=== PATIENT | male | born 1965 | race Caucasian/White ===

== ENCOUNTER 2017-11-30 07:19 | Emergency (ER) | payer SELFPAY ==
[2017-11-30] MEDS ORDERED: NS(*) 0.9% 1000 ML BAG 1,000 ML IV ONE ×2 (07:39)
[2017-11-30] MEDS ORDERED: ONDANSETRON 4 MG/2 ML VIAL IVP ONE ×2 (07:40→13:00)
--- NOTE | 2017-11-30 07:42 | ER Report ---
History and Physical Time Seen By MD: 07:30 Hx. of Stated Complaint: pt presents weak from not eating due to n/v/d HPI/ROS CHIEF COMPLAINT: Persistent vomiting diarrhea HISTORY OF PRESENT ILLNESS: Patient is a 52-year-old male comes emergency Department reportedly 7 days of persistent vomiting and diarrhea inability to tolerate by mouth progressive weakness patient states that he is has nothing left in him to come out and that he has been vomiting persistently nonbloody nonbilious emesis and has had persistent diarrhea that he describes as simply loose watery stool however is a unable to tolerate by mouth he denies abdominal pain denies chest pains he's had some sinus congestion the last couple days as well patient thinks he may have had a flu is not sure patient has no additional complaints REVIEW OF SYSTEMS: Respiratory: No cough, no dyspnea. Cardiovascular: No chest pain, no palpitations. Gastrointestinal: No abdominal pain vomiting and diarrhea Musculoskeletal: No back pain. Remainder of the 14 system rev: Yes Allergies: Coded Allergies: No Known Drug Allergies (Unverified , 11/30/17) Home Meds No Active Prescriptions or Reported Meds Reviewed Nurses Notes: Yes Old Medical Records Reviewed: Yes Constitutional Vital Sign - Last 24 Hours 11/30/17 11/30/17 11/30/17 11/30/17 07:22 07:27 07:30 07:49 Temp 98.9 Pulse 94 89 Resp 20 B/P (MAP) 173/112 201/118 (145) 173/112 (132) Pulse Ox 96 95 O2 Delivery Room Air 11/30/17 11/30/17 11/30/17 11/30/17 07:50 07:51 07:53 07:54 Pulse 86 B/P (MAP) 169/112 (131) 169/112 (131) 188/124 (145) Pulse Ox 96 O2 Delivery Room Air 11/30/17 11/30/17 11/30/17 11/30/17 07:56 07:57 08:00 08:30 Pulse 95 B/P (MAP) 181/124 (143) 184/124 (144) 181/118 (139) 168/109 (128) 11/30/17 11/30/17 11/30/17 11/30/17 09:00 09:05 09:30 09:35 Pulse 64 79 B/P (MAP) 168/104 (125) 178/132 (147) Pulse Ox 93 95 11/30/17 11/30/17 11/30/17 11/30/17 10:00 10:05 10:11 10:16 Pulse 80 92 B/P (MAP) 163/110 (127) 155/103 (120) Pulse Ox 93 93 11/30/17 11/30/17 11/30/17 11/30/17 10:22 10:27 10:29 10:55 Pulse 90 B/P (MAP) 150/101 (117) 146/91 (109) 148/100 (116) Pulse Ox 93 11/30/17 11/30/17 11/30/17 11/30/17 10:57 11:00 11:02 11:07 Pulse 79 78 88 B/P (MAP) 151/111 (124) Pulse Ox 90 96 97 11/30/17 11/30/17 11/30/17 11/30/17 11:10 11:17 11:20 11:27 Pulse 88 ??? B/P (MAP) 148/98 (115) 146/48 (80) Pulse Ox 93 11/30/17 11/30/17 11/30/17 11/30/17 11:30 11:37 11:40 11:47 Pulse ??? 96 B/P (MAP) ???/??? (1665) 174/105 (128) Pulse Ox 95 11/30/17 11/30/17 11/30/17 11/30/17 11:50 11:57 12:00 12:07 Pulse 94 95 B/P (MAP) 162/108 (126) 124/102 (109) Pulse Ox 93 95 11/30/17 12:10 B/P (MAP) 166/97 (120) Intake and Output 11/30/17 11/30/17 12/01/17 15:00 23:00 07:00 Intake Total 1000 ml Balance 1000 ml Physical Exam General Appearance: The patient is alert, has no immediate need for airway protection and no current signs of toxicity. [ ] Eyes: Pupils equal and round no injection. Respiratory: Chest is non tender, lungs are clear to auscultation. Cardiac: regular rate and rhythm [ ] Gastrointestinal: Abdomen is soft and non tender, no masses, bowel sounds normal. Musculoskeletal: Neck: Neck is supple and non tender. Extremities have full range of motion and are non tender. Skin: No rashes or lesions. Mucous membranes dry DIFFERENTIAL DIAGNOSIS: After history and physical exam differential diagnosis was considered for dehydration and enteritis gastritis colitis persistent vomiting Medical Decision Making Data Points Result Diagram: 11/30/17 0809 11/30/17 0809 Laboratory Hematology Test 11/30/17 08:01 11/30/17 08:09 11/30/17 11:41 Influenza Virus Type A (PCR) Negative (NEGATIVE) Influenza Virus Type B (PCR) Negative (NEGATIVE) Red Blood Count 4.95 M/uL (4.00-5.60) Mean Corpuscular Volume 95.1 fL (80.0-96.0) Mean Corpuscular Hemoglobin 34.5 pg (26.0-33.0) Mean Corpuscular Hemoglobin Concent 36.3 g/dL (32.0-36.0) Red Cell Distribution Width 15.3 % (11.5-14.5) Mean Platelet Volume 7.5 fL (7.2-11.1) Neutrophils (%) (Auto) 83.3 % (39.4-72.5) Lymphocytes (%) (Auto) 4.7 % (17.6-49.6) Monocytes (%) (Auto) 11.6 % (4.1-12.4) Eosinophils (%) (Auto) 0.0 % (0.4-6.7) Basophils (%) (Auto) 0.4 % (0.3-1.4) Nucleated RBC Relative Count (auto) 0.0 /100WBC Neutrophils # (Auto) 5.2 K/uL (2.0-7.4) Lymphocytes # (Auto) 0.3 K/uL (1.3-3.6) Monocytes # (Auto) 0.7 K/uL (0.3-1.0) Eosinophils # (Auto) 0.0 K/uL (0.0-0.5) Basophils # (Auto) 0.0 K/uL (0.0-0.1) Nucleated RBC Absolute Count (auto) 0.00 K/uL Peripheral Blood Smear Yes Y/N Prothrombin Time 14.0 seconds (12.0-14.4) Prothromb Time International Ratio 1.08 Activated Partial Thromboplast Time 53 seconds (23-35) Sodium Level 134 mmol/L (137-145) Potassium Level 3.1 mmol/L (3.5-5.0) Chloride Level 91 mmol/L (98-107) Carbon Dioxide Level 22 mmol/L (22-30) Blood Urea Nitrogen 9 mg/dl (9-21) Creatinine 0.60 mg/dl (0.66-1.25) Glomerular Filtration Rate Calc > 60.0 Random Glucose 197 mg/dl (75-110) Calcium Level 9.9 mg/dl (8.4-10.2) Total Bilirubin 1.6 mg/dl (0.2-1.3) Aspartate Amino Transf (AST/SGOT) 201 U/L (0-35) Alanine Aminotransferase (ALT/SGPT) 157 U/L (0-56) Alkaline Phosphatase 97 U/L (0-126) Troponin I < 0.012 ng/ml Total Protein 8.5 gm/dl (6.3-8.2) Albumin 4.4 g/dl (3.5-5.0) Lipase 51 U/L (23-300) Urine Color Yellow Urine Clarity Clear Urine pH 7.0 pH (4.8-9.5) Urine Specific [place] 1.023 Urine Protein 100 mg/dL (NEGATIVE) Urine Glucose (UA) Negative mg/dL (NEGATIVE) Urine Ketones 20 mg/dL (NEGATIVE) Urine Blood Negative (NEGATIVE) Urine Nitrite Negative (NEGATIVE) Urine Bilirubin Negative (NEGATIVE) Urine Urobilinogen 2.0 mg/dL (0.2-1.9) Urine Leukocyte Esterase Negative (NEGATIVE) Urine RBC None /HPF (0-2/HPF) Urine WBC 2 /HPF (0-5/HPF) Urine Squamous Epithelial Cells None /LPF (</=FEW) Urine Bacteria Negative /HPF (NONE-FEW) Urine Mucus Few /HPF (NONE-FEW) Chemistry Test 11/30/17 08:01 11/30/17 08:09 11/30/17 11:41 Influenza Virus Type A (PCR) Negative (NEGATIVE) Influenza Virus Type B (PCR) Negative (NEGATIVE) White Blood Count 6.2 k/uL (4.5-11.0) Red Blood Count 4.95 M/uL (4.00-5.60) Hemoglobin 17.1 g/dL (14.0-18.0) Hematocrit 47.1 % (42.0-52.0) Mean Corpuscular Volume 95.1 fL (80.0-96.0) Mean Corpuscular Hemoglobin 34.5 pg (26.0-33.0) Mean Corpuscular Hemoglobin Concent 36.3 g/dL (32.0-36.0) Red Cell Distribution Width 15.3 % (11.5-14.5) Platelet Count 176 K/uL (150-450) Mean Platelet Volume 7.5 fL (7.2-11.1) Neutrophils (%) (Auto) 83.3 % (39.4-72.5) Lymphocytes (%) (Auto) 4.7 % (17.6-49.6) Monocytes (%) (Auto) 11.6 % (4.1-12.4) Eosinophils (%) (Auto) 0.0 % (0.4-6.7) Basophils (%) (Auto) 0.4 % (0.3-1.4) Nucleated RBC Relative Count (auto) 0.0 /100WBC Neutrophils # (Auto) 5.2 K/uL (2.0-7.4) Lymphocytes # (Auto) 0.3 K/uL (1.3-3.6) Monocytes # (Auto) 0.7 K/uL (0.3-1.0) Eosinophils # (Auto) 0.0 K/uL (0.0-0.5) Basophils # (Auto) 0.0 K/uL (0.0-0.1) Nucleated RBC Absolute Count (auto) 0.00 K/uL Peripheral Blood Smear Yes Y/N Prothrombin Time 14.0 seconds (12.0-14.4) Prothromb Time International Ratio 1.08 Activated Partial Thromboplast Time 53 seconds (23-35) Glomerular Filtration Rate Calc > 60.0 Calcium Level 9.9 mg/dl (8.4-10.2) Total Bilirubin 1.6 mg/dl (0.2-1.3) Aspartate Amino Transf (AST/SGOT) 201 U/L (0-35) Alanine Aminotransferase (ALT/SGPT) 157 U/L (0-56) Alkaline Phosphatase 97 U/L (0-126) Troponin I < 0.012 ng/ml Total Protein 8.5 gm/dl (6.3-8.2) Albumin 4.4 g/dl (3.5-5.0) Lipase 51 U/L (23-300) Urine Color Yellow Urine Clarity Clear Urine pH 7.0 pH (4.8-9.5) Urine Specific [place] 1.023 Urine Protein 100 mg/dL (NEGATIVE) Urine Glucose (UA) Negative mg/dL (NEGATIVE) Urine Ketones 20 mg/dL (NEGATIVE) Urine Blood Negative (NEGATIVE) Urine Nitrite Negative (NEGATIVE) Urine Bilirubin Negative (NEGATIVE) Urine Urobilinogen 2.0 mg/dL (0.2-1.9) Urine Leukocyte Esterase Negative (NEGATIVE) Urine RBC None /HPF (0-2/HPF) Urine WBC 2 /HPF (0-5/HPF) Urine Squamous Epithelial Cells None /LPF (</=FEW) Urine Bacteria Negative /HPF (NONE-FEW) Urine Mucus Few /HPF (NONE-FEW) Coagulation Test 11/30/17 08:09 Prothrombin Time 14.0 seconds Prothromb Time International Ratio 1.08 Activated Partial Thromboplast Time 53 seconds Urinalysis Test 11/30/17 11:41 Urine Color Yellow Urine Clarity Clear Urine pH 7.0 pH (4.8-9.5) Urine Specific [place] 1.023 Urine Protein 100 mg/dL (NEGATIVE) Urine Glucose (UA) Negative mg/dL (NEGATIVE) Urine Ketones 20 mg/dL (NEGATIVE) Urine Blood Negative (NEGATIVE) Urine Nitrite Negative (NEGATIVE) Urine Bilirubin Negative (NEGATIVE) Urine Urobilinogen 2.0 mg/dL (0.2-1.9) Urine Leukocyte Esterase Negative (NEGATIVE) Urine RBC None /HPF (0-2/HPF) Urine WBC 2 /HPF (0-5/HPF) Urine Squamous Epithelial Cells None /LPF (</=FEW) Urine Bacteria Negative /HPF (NONE-FEW) Urine Mucus Few /HPF (NONE-FEW) ED Course/Re-evaluation ED Course ED clinical course medical decision making a 52-year-old male came in here with abdominal nausea vomiting persistent he also described a subtle headache has been intermittent but yet somewhat persistent for the last couple of days secondary to that I get a head CT which came back markedly abnormal with an intracranial abnormality including bleeding potentially mass related or aneurysmal further following up CTA has been ordered and performed and consult with Dr. Saleem our radiologists consulting with neuroradiology patient's blood pressure was markedly elevated this was treated with IV Cardene. 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 patient will be airlifted to [facility] I spoke with interventional radiology for definitive care and management to the ICU will continue Cardene drip she medically stable map trending down get the diastolic lowered in the systolic less than 140 per recommendation Decision to Disposition Date: November 30, 2017 Decision to Disposition Time: 12:21 Depart Departure Latest Vital Signs Vital Signs Date Time Temp Pulse Resp B/P (MAP) Pulse Ox O2 Delivery O2 Flow Rate FiO2 11/30/17 12:10 166/97 (120) 11/30/17 12:07 95 95 11/30/17 07:54 Room Air 11/30/17 07:22 98.9 20 Impression: Primary Impression: Ruptured aneurysm of artery Condition: Improved Disposition: XFER TO [facility] Referrals: ONEIDA MCCLELLAN MD (PCP) New Scripts No Active Prescriptions or Reported Meds KERON NASCIMENTO MD November 30, 2017 07:42
--- NOTE | 2017-11-30 07:52 | EKG ---
FACILITY: [facility] PATIENT NAME: KIANNA LEE : [id number] MR: [id number] V: [id number] EXAM DATE: ORDERING PHYSICIAN: KERON NASCIMENTO TECHNOLOGIST: ROMAINE Test Reason : NAUSEA Blood Pressure : / mmHG Vent. Rate : 090 BPM Atrial Rate : 090 BPM P-R Int : 162 ms QRS Dur : 096 ms QT Int : 386 ms P-R-T Axes : 041 -54 006 degrees QTc Int : 472 ms Normal sinus rhythm Left axis deviation Inferior infarct , age undetermined Abnormal ECG No previous ECGs available Confirmed by LEATHA SWEENEY ([id number]) on 11/30/2017 10:25:52 AM Referred By: PILY Confirmed By:LEATHA SWEENEY
[2017-11-30 09:12] LABS: PLATELET COUNT, AUTOMATED 176 K/uL (150-450)
[2017-11-30] MEDS ORDERED: KETOROLAC 30 MG/ML VIAL IVP ONE (09:20)
[2017-11-30] MEDS ORDERED: IOPAMIDOL 76% 75 ML INFUS BTL 75 ML ONE ×2 (09:41→10:50)
[2017-11-30] MEDS ORDERED: NICARDIPINE(*) 20MG/NS 200 ML 200 ML IV ONE ×2 (09:50→14:20)
[2017-11-30 10:11] LABS: INR 1.08
--- NOTE | 2017-11-30 10:47 | RADIOLOGY IMAGING REPORT ---
FACILITY: [facility] PATIENT NAME: Binu Tyler : 1965 MR: [id number] V: [id number] EXAM DATE: ORDERING PHYSICIAN: KERON NASCIMENTO TECHNOLOGIST: Location: [facility] [place] Patient: Binu Tyler : 1965 Visit/Account:[id number] Date of Sevice: 11/30/2017 EXAMINATION: Head CT without intravenous contrast HISTORY: Headache x1 week TECHNIQUE: Contiguous axial images were obtained from the skull base to the vertex without intraven ous contrast. Sagittal and coronal reformatted images are also submitted. Dose Lowering Technique One of the following dose optimization techniques was utilized in the performance of this exam: Autom ated exposure control; adjustment of the mA and/or kV according to the patient's size; or use of an i terative reconstruction technique. Specific details can be referenced in the facility's radiology C T exam operational policy. COMPARISON: None. FINDINGS: Brain volume: Normal. There is a 3 x 3 x 1.7 cm hemorrhage in the medial left parietal lobe which extends medially into the body of the corpus callosum. There is a small amount of hemorrhage breaking into the atria and temp oral horn of the left lateral ventricle. There is a small amount of surrounding edema.. There are b ilateral parafalcine subdural hematomas with both acute and chronic components. The maximum diameter of the parafalcine subdural is 4.5 mm. There are also small bilateral holohemispheric subdural ez muna with both acute and chronic components. The maximum diameter 6 mm. There is no significant mi dline shift or downward herniation. The subdural hematoma tracks along the tentorium bilaterally. Vessels: Negative. Extra-axial: As described above Calvarium / scalp: Negative. Skull base / visualized face: Negative. Visualized sinuses / orbits: Mild mucosal thickening in the maxillary sinuses IMPRESSION: There is a 3 x 3 x 1.7 cm hemorrhage in the medial left parietal lobe which extends medially into the body of the corpus callosum. There is a small amount of surrounding edema There is a small amount of hemorrhage breaking into the atria and temporal horn of the left lateral ventricle. There are bilateral parafalcine subdural hematomas with both acute and chronic components. The subdu ral hematoma tracks along the tentorium bilaterally. There are small bilateral holohemispheric subdural hematomas with both acute and chronic components. There is no significant midline shift or downward herniation. Given the midline location with hemorrhage extending into the corpus callosum. Most likely etiology would be an anterior cerebral artery aneurysm. Neoplastic process is less likely due to the small a mount of surrounding edema. CTA of the brain with contrast is recommended for further evaluation. Results were called to KERON NASCIMENTO at 11/30/2017 10:43 AM. Report Dictated By: Meghan Webber MD at 11/30/2017 10:12 AM Report E-Signed By: Meghan Webber MD at 11/30/2017 10:43 AM WSN:[id number]
[2017-11-30] MEDS ORDERED: NS 0.9% 150 ML BAG 150 ML ONE (10:50)
--- NOTE | 2017-11-30 11:39 | RADIOLOGY IMAGING REPORT ---
FAC[place] [facility] [place] PATIENT NAME: Binu Tyler : 1965 MR: [id number] V: [id number] EXAM DATE: ORDERING PHYSICIAN: KERON NASCIMENTO TECHNOLOGIST: Location: [facility] Patient: Binu Tyler : 1965 Visit/Account:[id number] Date of Sevice: 11/30/2017 CT ANGIOGRAM HEAD W/ CONTRAST EXAMINATION: CTA of the Brain with IV contrast Additional Pertinent history: Intracranial hemorrhage COMPARISON STUDIES: CT head obtained earlier same date. TECHNIQUE: Overlapping thin sections were obtained during a bolus of IV contrast from the upper nec k through the upper cerebrum. Reconstruction of the source data set includes mulitplanar 2D in the sa gittal and coronal planes, and 3D coronal thin slab MIP series. Oil Well Engineer images have been store d on PACS. One of the following dose optimization techniques was utilized in the performance of this exam: Automated exposure control; adjustment of the mA and/or kV according to the patient's size; or use of an iterative reconstruction technique. Specific details can be referenced in the facility's radiology CT exam operational policy. Stenosis calculations are performed using the NASCET criteria ( the diameter of the stenotic segment divided by the diameter of a normal distal segment of internal c arotid artery, where [place] are parallel, then subtracted from 1). Contrast: 75 mL of IV Isovue-370. FINDINGS: Angiographic findings: Internal carotids: Negative. Vertebro-basilar: Negative. [place]: Negative. ASIYA circulation: Focal 3 mm hyperdense area adjacent to the pericallosal hemorrhage compatible with an aneurysm.. MCA circulation: Negative. HOISTING MACHINE OPERATOR circulation: Negative. Additional non-angiographic findings: Intracranial hemorrhage appears stable. IMPRESSION: Findings compatible with a 3 mm ASIYA aneurysm adjacent to the pericallosal hematoma. Results were called to Dorota nurse practitioner caring for the patient at 1130 hours. Report Dictated By: Aleksandar Looney MD at 11/30/2017 11:23 AM Report E-Signed By: Aleksandar Looney MD at 11/30/2017 11:35 AM WSN:[id number]
[2017-11-30 14:20] VITALS: BP 147/89
== END 2017-11-30 14:59 | disposition short-term general hospital (02) ==
LOC: ER 07:26
DX: I77.2 Rupture of artery (principal); R94.31 Abnormal electrocardiogram [ECG] [EKG]
CPT/HCPCS: 70450; 70496; 81001; 83690; 84484; 85025; 85610; 85730; 87502; 93005; 96361; 96365; 96366; 96375; 96376; 99285; J1885; J2405; J7030; Q9967; 82040; 82247; 82310; 82374; 82435; 82565; 82947; 84075; 84132; 84155; 84295; 84450; 84460; 84520

== ENCOUNTER → 2017-11-30 | Outpatient (REF) | LOC: AMB 13:09 | PROVIDERS: ATTEND Nurse Practitioner | DX: Z02.9 Encounter for administrative examinations, unspecified (principal) ==

== ENCOUNTER 2018-03-01 11:15 | Outpatient (RCR) | payer OTHER ==
--- NOTE | 2018-02-08 15:48 | SLP EVALUATION SUMMARY REPORT ---
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 CT scan was taken on 11/30/17 after Mr. Tyler initially presented to the ED at [facility] on 11/30/17 with progressive weakness, persistent vomiting, and abdominal pain. Hemorrhage was noted in the medial left parietal lobe with medial extension into the body of the corpus callosum. CT scan was also remarkable for bilateral parafalcine subdural hematomas and bilateral holohemispheric subdural hematomas. Following results of his CT scan, Mr. Tyler was quickly airlifted to a hospital in [place]. Mr. Tyler demonstrated difficulty recalling course of hospitalization, and was unable to describe rehabilitative services received while hospitalized. Medical history appears otherwise unremarkable. COGNITION Assessment procedures included a patient interview, informal evaluation of expressive and receptive language, informal assessment of motor speech, and administration of the Peabody Cognitive Assessment (version 7.3). A brief screening tool was selected due to significant difficulties noted with sustained attention, self-report of cognitive fatigue, and disclosure of decreased motivation to participate in rehabilitative services. During the patient interview, Mr. Tyler reported concerns with short term memory, ability to sustain attention, expressive language, and speech output. He appeared highly frustrated by perceived deficits with significant decline in comparison to baseline cognitive linguistic status. 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 He enjoys hunting, riding motorcycles, and spending time with family. The Peabody Cognitive Assessment (MoCA) Version 7.3 was administered with the following results: -MoCA Total Score (TS): 19/30 (WFL = 27/30) mild neurocognitive impairment. Significant difficulties were noted during tasks requiring short term memory. Mild errors were also noted during executive function, expressive language, attention, and orientation activities. Mr. Tyler required extra time to process new information, but often self-corrected mistakes when provided with ample time for error awareness. He struggled to independently recall current date and location, but self-cued to look out the window to identify the town of [place] and to utilize cell phone for recall of current date. Mr. Tyler also exhibited darting eye movements with high levels of distractibility difficulty competing attention against external environmental stimuli. LANGUAGE Mr. Tyler demonstrated mild anomia throughout interview process, in addition to infrequent phonemic paraphasias, reduced semantic fluency, and circumlocutions. He was highly aware of expressive language pattern, and appeared discouraged by errors (I guess this is just how I talk now). Further assessment appears warranted. Receptive language appears relatively intact despite extra time required to process complex information. Mild social language (pragmatic) impairments also appeared present. Pragmatic deficits were characterized by decreased eye contact, flat prosody, difficulty interpreting/responding to humor, and shortened, abrupt responses to open-ended questions. However, Mr. Tyler stated that he is typically "a quiet silvano" at baseline. SPEECH Mr. Tyler demonstrated decreased speech initiation, and reported, Its almost like my tongue gets stuck in my mouth. Difficulty was observed during rapid, alternating diadokokinetic tasks with noted improvement when cued to observe PAINTER DRUM model. Mr. Tyler appears to present with mild apraxia of speech in conjunction with mild deficits in expressive aphasia. VOICE Within functional limits. Mr. Tyler demonstrated intermittent reduction in speaking volume which appeared secondary to initiation deficits associated with cerebral injury versus true impairment in voice generation. DYSPHAGIA Patient denies past s/s. No concerns noted in medical record. SUMMARY Mr. Tyler presents with mild to moderate cognitive- linguistic deficits that may reduce independence with completion of IADLs, return to vocational activities, and complex communication. He endorses a moderate, negative impact of cognitive-linguistic deficits on daily life and work-related tasks. The results of this evaluation demonstrate that functional cognitive-linguistic impairments are present, indicating skilled speech therapy services are medically necessary for this patient. PROGNOSIS: Very Good. Patient has good family support, exhibits strong insight , and demonstrates evidence of self-correction. RECOMMENDATIONS 1. Speech therapy 2x/wk for 7 weeks to address above described deficits PLAN OF CARE Short Term Goals 1. Pt will utilize trained energy conservation strategies during 90% of opportunities with min cues to improve sustained attention, decrease cognitive overload, and minimize frustration during participation in IADL activities. 2. Pt will perform short-term memory tasks using external and internal memory strategies with 90% accuracy and mod assist. 3. Pt will complete complex expressive language activities (i.e., complex conversation, description of medical needs, communication of vocational activities) with occ cues for use of word-finding strategies and self- correction of expressive language errors. Long-Term Goals Increase independence with IADLs and functional communication for safe and successful return to home, community, and vocational activities. Thank you for this referral. Please call [phone] to contact the [employer] Aida Valdez M.S., [facility]-PAINTER [employer]UM Physician Signature Date . [*] MTDD
--- NOTE | 2018-02-08 16:44 | PT INITIAL EVALUATION ---
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 Hemorrhage was noted in the medial left parietal lobe with medial extension into the body of the corpus callosum. CT scan was also remarkable for bilateral parafalcine subdural hematomas and bilateral holohemispheric subdural hematomas. Following results of his CT scan , he was quickly airlifted to a hospital in [place]. He demonstrated difficulty recalling course of hospitalization. He was able to recall that he did participant in physical therapy, occupational therapy, and speech therapy prior to returning to home but unable to recall the specifics. He reports that he returned home on Tuesday (02/06/18) and is not having difficulty with anything around his home. He states that stairs are going well. He denies any falls at home. He states that he feels like his coordination and balance continue to be off but strength and walking seem to be returning to his prior level of function. He also reports that he has the most difficulties with short term memory and talking. He denies any pain in his entire body with the exception of his R knee that he injured when he was 14 years old. He denies any B knee buckling or falls since being home. 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 L hip adduction, L knee extension and flexion, and L ankle DF and PF: 4+/5. R hip flexion, abduction, extension, R hip adduction, R knee extension and flexion, R ankle DF and PF: 4+ /5. He did not have any pain with MMT's in either extremity. Special Tests: 5 sit to/from standin seconds. Tinetti gait and balance: : continues to be high risk. 6 minute walk test: 770 feet with FWW. Mobility: Modified Independent Gait: He demonstrated increased base of support, decreased velocity, decreased B pelvic rotation, normal B feet clearance, normal B step length, increased double limb support, increased stance time, and required repeated cuing to stay close to the walker. Balance: Firm surface, eyes opened and eyes closed, normal base of support and decreased base of support: 60 seconds; however, he demonstrated increased sway with eyes closed. Compliant surface, eyes opened and eyes closed, normal base of support and decreased base of support: 60 seconds; however, he demonstrated increased sway with eyes closed. Compliant surface, tandem stance, eyes opened : able to complete 40 seconds with severe sway requiring stabilization to prevent fall ASSESSMENT: Gonzalo will benefit from skilled physical therapy addressing the listed impairments to improve function and return to prior level of function. Short Term Goals 8 weeks: Pt will be able to ambulate independently with a return to prior gait mechanics to improve function and QOL. 8 weeks: Pt will demonstrate 5/5 strength with B LE's to improve function and QOL. 8 weeks: Pt will demonstrate 60 seconds in all balance conditions and strategies to improve function and QOL (feet together, feet apart, eyes closed , eyes opened, firm surface, and compliant surface). Patient's Goals reduce clumsiness, get stronger, and walk without walker PLAN: Patient to be seen for Manual Therapy/STM/MET Strengthening/condition Range of Motion Spinal Stabilization Work Hardening/Cond Stretching Neuromuscular Re-ed Closed Chain Program Posture/Body mechanics Gait Trg/Balance Trg Home Exercise Program Therapeutic Activities 1-2x/week for 8 weeks If you have any questions, comments, or concerns about this report or plan, please contact me at . Thank you, Bari Cool, PT, DPT MTDD
--- NOTE | 2018-02-09 09:43 | OT ECF NOTE ---
SUBJECTIVE: Gonzalo presents to outpatient OT s/p L parietal CVA. [facility] and quickly flown to [place] for further intervention. Pt with flat affect and providing minimal responses to questions. Pt reports he is not sure when he returned home and what rehab (PT/OT/Speech) he received prior. Pt reports living with son and no difficulties with ADLs or IADLs within the home. Ambulates with RW. Pt reports no concerns with UE function, ADLs/IADLs and reports his primary goal is to "ride my motorcycle again" and he is primarily concerned about pain/weakness in R LE. 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 Pt is able to recognize hot/cold. No numbness/tingling reported. Special Test: 9 Hole Peg Test (dexterity)-V/c's for attention to task. Right= 27 seconds (Age/gender normative= 19.2sec.) Left=34 seconds (Age/gender normative= 20.7 sec.) ASSESSMENT Pt presents with generalized weakness in B UE and decreased fine motor strength/ dexterity compared to relative norms. Pt agreeable to skilled OT intervention to improve B UE strength and incorporation of HEP. Short Term Goals 1) Pt will improve blister packing machine tender strength by 10# in order to improve engagement in IADLs. 2) Pt will be independent with HEP for UE strengthening. PLAN: 1x/week x 2 weeks Thank you for this referral. If you have any questions, concerns, or comments about this report or plan, please contact me at [phone]. Mana Valdez MS, OTR/L Occupational Therapist DELMY
--- NOTE | 2018-02-20 14:59 | OT DISCHARGE SUMMARY ---
SUBJECTIVE: Gonzalo presented to outpatient OT s/p L parietal CVA. Pt reports no concerns with UE function, ADLs/IADLs and reports his primary concerns are balance and memory. 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 Pt is able to recognize hot/cold. No numbness/tingling reported. Special Test: Pt declining OT tx, amenable to discharge from OT as he is able to use B UE for all functional tasks. ASSESSMENT Pt declining OT tx this date, reports no concerns with UE strength/function. Reports he has not been completing HEP and declines to review them with OT at this time. Pt agreeable to discharge from skilled OT services. Plan to continue with speech and PT. Pt instructed for process to resume OT if desired. Plan to discharge skilled OT services at this time. Short Term Goals 1) Pt will improve client relations specialist strength by 10# in order to improve engagement in IADLs. Not tested. 2) Pt will be independent with HEP for UE strengthening. Pt reports he has not completed HEP. Has HEP available if he decides to utilize. PLAN: Discharge skilled OT services at this time. Thank you for this referral. If you have any questions, concerns, or comments about this report or plan, please contact me at [phone]. Mana Valdez MS, OTR/L Occupational Therapist DELMY
--- NOTE | 2018-03-01 18:25 | PT PLAN OF CARE ---
Physician: JAYASHREE Pak Patient is being seen: 2x/week Therapist: Bari Cool, PT, DPT Medical Diagnosis: Post CVA Treatment Diagnosis: same, altered gait, decreased strength, decreased balance and coordination Date of Onset: 11/30/17 Date of Initial Evaluation: 02/08/18 Date patient was last seen: 03/01/18 Number of treatments: 7 Number of cancellations/No shows: 0 INTERVENTIONS: Manual Therapy/STM/MET Strengthening/condition Range of Motion Spinal Stabilization Work Hardening/Cond Stretching Neuromuscular Re-ed Closed Chain Program Posture/Body mechanics Gait Trg/Balance Trg Home Exercise Program Therapeutic Activities GOALS: 8 weeks: Pt will be able to ambulate independently with a return to prior gait mechanics to improve function and QOL. MET 8 weeks: Pt will demonstrate 5/5 strength with B LE's to improve function and QOL. Progressed 8 weeks: Pt will demonstrate 60 seconds in all balance conditions and strategies to improve function and QOL (feet together, feet apart, eyes closed , eyes opened, firm surface, and compliant surface). MET PATIENT'S GOAL: reduce clumsiness, get stronger, and walk without walker Progressed Status of Patient's Goals: Progressed Patient Compliance: Good Prognosis: Excellent Reasons for continuing therapy: This is a discharge note for Binu Tyler. He reports that he feels like he is getting better as each day and each week passes. He reports that he feels like his memory and his balance are his two limiting factors and believes that those two factors will improve over time. He reports that today will be the last day of PT even though he knows that his balance has not returned to his prior level of function. Since the initial examination, he has made significant improvements with static balance in all conditions and has met that goal as he has return to prior level of function. However, with his dynamic balance, he continues to demonstrate reduced ankle and hip strategies in conditions with decreased base of support and in tandem stance. Furthermore, he demonstrates delayed motor planning with more than one step instructions. As a result, he refuses to continue with physical therapy even though he understands his dynamic balance and delayed motor planning. He even refused home exercise program as he feels that it will just get better overtime with his normal daily tasks that he typically performs. Lastly, he has demonstrated significant improvements with gait and endurance. As a result, of his own desire, he will be discharged from PT. Strength: L hip flexion, abduction, extension: 4+/5. L hip adduction, L knee extension and flexion, and L ankle DF and PF: 4+/5. R hip flexion, abduction, extension, R hip adduction, R knee extension and flexion, R ankle DF and PF: 4+ /5. He did not have any pain with MMT's in either extremity. Special Tests: 5 sit to/from standin seconds. Tinetti gait and balance: : continues to be high risk. 6 minute walk test: 770 feet independently. Mobility: Independent If you have any questions, please contact me at [phone]. Thank you, Bari Cool, PT, DPT MTDD
== END 2018-03-01 18:00 | disposition home or self-care (01) ==
LOC: PT 11:15
PROVIDERS: ATTEND Nurse Practitioner Psychiatric/Mental Health
DX: I69.318 Other symptoms and signs involving cognitive functions following cerebral infarction (principal); R26.89 Other abnormalities of gait and mobility; R53.1 Weakness
CPT/HCPCS: 92523; 97162; 97166

== ENCOUNTER 2018-11-22 14:30 | Outpatient (RCR) | payer OTHER ==
[2018-08-30 08:06] VITALS: BP 131/92
[2018-08-30 09:41] LABS: PLATELET COUNT, AUTOMATED 204 K/uL (150-450)
[2018-08-30 11:12] LABS: INR 1.02
--- NOTE | 2018-08-30 12:36 | ONCOLOGY HISTORY AND PHYSICAL ---
EVENT DATE: August 30, 2018 CHIEF COMPLAINT Short-term memory loss, frustration. HISTORY OF PRESENT ILLNESS Gonzalo is a very pleasant,53-year old gentleman with a history of hypertension and heavy alcohol use who also has a suspected diagnosis of von Willebrand disease and note of possible presence of lupus anticoagulant. The patient had presented to the [facility] November 2017, having been air-lifted from [place]. He was diagnosed at that time with intraparenchymal bleeding after giving a history of about two months of headaches, nausea and vomiting after falling and injuring his head and face. 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 He also has a known ophthalmic aneurysm. He did have a prolonged hospitalization and subsequent discharge to rehab. He had made a remarkable recovery and since that time he has been back in [place]. For the most part, things have gone okay on the surface but he remains frustrated with his short-term memory loss, cognitive issues and relative dependence on loved ones. From a hematologic perspective, he did undergo prior testing for von Willebrand's disease with labs consistent with moderate to severe type 1 von Willebrand's. There was some suspicion per hematology consultation at [facility] for falsely lowered values due to specimen handling. Subsequent testing showed much higher numbers, while acutely ill. Patient underwent additional studies to include factor V, factor VII and factor VIII levels. These were reportedly modestly low, suggesting the possibility of mild liver dysfunction, keeping into account his alcohol use. In any case, there was no other notable report to my knowledge of abnormal bleeding during his hospital stay and he has had none since. The patient does report that he had dealt with fairly frequent epistaxis but only a few times had it been moderate or severe. He did not have any bleeding with prior wisdom teeth extraction and no abnormal bleeding with any surgical procedures. To his knowledge, he has not required blood transfusion. He reports no recent issues with epistaxis and he has had no melena or hematochezia. He denies hematuria. Bruising has not been particularly remarkable. Gonzalo is here today to establish care with a train operator locally. He and his significant other have many questions. REVIEW OF SYSTEMS Otherwise negative and all systems are reviewed. PAST MEDICAL HISTORY 1. 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 2. History of alcohol abuse. 3. Hypertension. CURRENT MEDICATIONS None, per review with patient today. ALLERGIES No known drug allergies. SOCIAL HISTORY The patient does have a reported history of heavy alcohol use. There is no history of illicit drug use. FAMILY HISTORY There is a reported family history of von Willebrand disease in his children. PHYSICAL EXAMINATION VITAL SIGNS: Temperature 96.9, blood pressure 131/92, heart rate 81, respirations 16, oxygen saturation 94% on room air. Weight 115.5 kg. GENERAL: Patient is awake, alert and oriented x3. No apparent distress, sitting in the exam room chair. He is interactive and pleasant, tearful at times. Short-term memory does appear to be impaired. HEENT: Anicteric sclerae. EXTREMITIES: No edema, clubbing or cyanosis. SKIN: No severe bruising or concerning rash or lesion. NEURO: Gait is normal and stable. LABORATORY DATA Laboratory studies are reviewed per multiple records and the [facility] record. IMAGING None today. ASSESSMENT AND PLAN 1. Reported possible von Willebrand disease. I had a good discussion with Gonzalo today. We were joined for the entirety of today's visit by Heide Cooper, nurse practitioner. We spent a good deal of time discussing his mid 2018 pseudoaneurysm rupture, intervention and hospitalization thereafter. We also discussed his recovery in detail. There is concern for a right sided aneurysm at this point as well. The patient has followed up with neurosurgery but this is the first hematology visit that he has had since being discharged from the hospital. Symptomatically, he seems to be doing reasonably well. He does not give symptoms at this time to suggest abnormal bleeding but his prior labs are noted as well as his family history. As discussed, I do want to review his situation with Dr. Dubon at [facility] to make sure that we are on the same page about his hematologic care. I have asked him to go to the lab today to have repeat laboratory studies to include a CBC with differential, PT, PTT, fibrinogen, von Willebrand's panel with multimer and evaluation for a circulating inhibitor, as there is also note for some positivity of the lupus anticoagulant previously. He does not have a thrombosis history, of note. I would like him to return to see me in the next few weeks to review these labs and by that time I will have had a chance to discuss his situation with benign hematology at [facility] as well. All questions answered in this regard today. 2. Cognitive dysfunction. This was a very pertinent part of our discussion today as well. He has made a pretty good recovery from what I can tell but he remains frustrated with his short-term memory loss and other issues. We discussed the merits of neurocognitive testing and I have strongly recommended that he visit with Dr. Means in [facility]. He agrees with this plan. The patient had several additional questions for me today and I believe I answered all questions to his satisfaction. I spent a total of 45 minutes of time [id number] with him today and 40 minutes of this was spent in direct consultation and coordination of care. DELMY
[2018-09-13 14:03] VITALS: BP 130/88
--- NOTE | 2018-09-26 02:27 | ONCOLOGY FOLLOW UP NOTE ---
EVENT DATE: September 13, 2018 REASON FOR FOLLOWUP 1. Concern for von Willebrand disease. 2. Lupus anticoagulant positivity. INTERIM HISTORY Gonzalo returns to clinic for a followup visit today. He is accompanied by his daughter. Symptomatically, he has done about the same since our last visit. He has had no abnormal bleeding. He continues to struggle with short-term memory and cognition. His daughter is with him to take notes and make sure that we are on the right track. REVIEW OF SYSTEMS Otherwise negative, and all systems are reviewed. PAST MEDICAL HISTORY 1. 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 2. History of alcohol abuse. 3. Hypertension. CURRENT MEDICATIONS None, per review with patient today. ALLERGIES No known drug allergies. SOCIAL HISTORY The patient does have a reported history of heavy alcohol use. There is no history of illicit drug use. FAMILY HISTORY There is a reported family history of von Willebrand disease in his children. PHYSICAL EXAMINATION VITAL SIGNS: Temperature is 97.1, blood pressure 130/88, heart rate 82, respirations 16, oxygen saturation 97% on room air. Weight is 117.7 kg. GENERAL: Patient is alert and oriented x3, in no apparent distress, sitting in the exam room chair. He is pleasant and interactive, but short-term memory is impaired. HEENT: Anicteric sclerae. NEUROLOGIC: Exam is otherwise grossly nonfocal. His gait is normal. EXTREMITIES: No edema, clubbing or cyanosis. There is no erythema or tenderness to palpation. LABORATORY STUDIES Please see [facility] record. ASSESSMENT AND PLAN 1. Von Willebrand disease. As discussed with Mr. Tyler, his most recent labs are indicative of a likely type 1 von Willebrand disease. He has had no recent bleeding, and historically his biggest concern aside from bleeding associated with the recent aneurysm has consisted of epistaxis. The patient today, unlike his initial visit, reported that he had previously been told that he had von Willebrand disease, so today this was not really a surprise. He has kids with von Willebrand disease, as well. He reports that previously, they were able to hold some type of a medication in the emergency department here in case he had a bleeding problem, but he does not remember the name of the medication. As discussed, I have reviewed his situation with Dr. Dubon at the [facility], who had consulted during his extended prior hospital stay there. Dr. Dubon would be more than happy to see him in consultation in their hemophilia clinic, and I think this is a very fisher idea. We will check with the emergency department to see whether Haemate P was indeed the medication that they had on hand, as it would be fisher to continue with this practice. Of course, I would be more than happy to follow up with him here to be a local hematology contact for him, but I have reinforced the importance of having him visit with Dr. Dubon and his team. The patient expresses understanding. Referral will be made. 2. Lupus anticoagulant positivity. This again has returned positive, but he does not have a thrombosis history, from what I can decipher. The patient and his daughter had several additional questions for me today, and I believe I answered all their questions to their satisfaction. DELMY
--- NOTE | 2018-11-03 12:24 | NUR ---
After numerous discussions with Gonzalo, I finally was able to write down his appt information and had Dr. Ramon call and speak with his SO, Stefanie. Today I have spoken with Stefanie to inform her that Dr. Childs, partner Dr. Drew could see Gonzalo on the same day as Neuro (november 09). I gave her the phone number for [facility] office and told her to coordinate the appts and let us know if they needed anything else.
[~2018-11-22] VITALS: Ht 177.4 cm; Wt 115.9 kg
[2018-11-22 14:35] VITALS: BP 161/99
--- NOTE | 2018-12-06 03:45 | ONCOLOGY FOLLOW UP NOTE ---
EVENT DATE: November 22, 2018 REASON FOR FOLLOWUP 1. Von Willebrand disease. 2. Lupus anticoagulant positivity. INTERIM HISTORY Gonzalo returns to clinic for a followup visit today. He is accompanied by his mother and daughter. Since our last visit, he has been doing about the same symptomatically. He reports no focal neurologic symptoms, and no recent changes in vision. He continues to have issues with memory, concentration, and general cognition. He was able to visit in the neurosurgery clinic at [facility] with Dr. Chairez. They also report visiting with Hematology there. REVIEW OF SYSTEMS Otherwise negative, and all systems are reviewed. PAST MEDICAL HISTORY 1. 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 2. History of alcohol abuse. 3. Hypertension. CURRENT MEDICATIONS None, per review with patient today. ALLERGIES No known drug allergies. SOCIAL HISTORY The patient does have a reported history of heavy alcohol use. There is no history of illicit drug use. FAMILY HISTORY There is a reported family history of von Willebrand disease in his children. PHYSICAL EXAMINATION VITAL SIGNS: Temperature is 96.8, blood pressure 161/99, heart rate 123, respirations 16, oxygen saturation 98% on room air. Weight is 115.9 kg. GENERAL: Patient is alert and oriented x3, in no apparent distress, sitting in the exam room chair. He is interactive and pleasant. HEENT: Anicteric sclerae. NEUROLOGIC: Exam is grossly nonfocal, and his gait is normal. Memory and cognition are impaired by way of history and interaction in the exam room. SKIN: Exam reveals no concerning rash or lesion. There is no significant bruising. LABORATORY STUDIES Reviewed per the [employer] record. IMAGING None today. ASSESSMENT AND PLAN Von Willebrand disease. I visited again with Mr. Tyler, as well as his mother and daughter. I spent a lot of time today listening, as his mother had reiterated some of his medical history, as well as recent concerns, and communications with providers at [facility]. Importantly, Mr. Tyler has had no significant changes in his symptoms, notably no significant bleeding. We spent time today reviewing the nature of his von Willebrand disease, which is likely type 1 [address] of his laboratory review. There is also the concern for lupus anticoagulant positivity. As discussed, these could represent opposing forces in terms of hemostasis. It does seem at this point that the patient is leaning toward surveillance in terms of aneurysm management, and I have implored the patient and his family to continue to be in touch with hematologists at the [facility]. For the time being, I will hold off on any additional workup or laboratory studies, but as discussed, I would be happy to serve as local contact from a hematology standpoint. I do believe that any further decision-making surrounding management of von Willebrand disease, the lupus anticoagulant, and any neurosurgical intervention should take place with providers at the [facility]. The patient's mother states that they do plan to communicate soon with Hematology there. All questions answered today. [facility]
== END 2018-11-28 ==
LOC: ONC 14:30
PROVIDERS: ATTEND Internal Medicine Medical Oncology
DX: D68.0 Von Willebrand disease (principal); I69.811 Memory deficit following other cerebrovascular disease; R41.3 Other amnesia; R45.4 Irritability and anger; I10 Essential (primary) hypertension
CPT/HCPCS: 85025; 85240; 85245; 85246; 85384; 85597; 85610; 85730; 86146; 86147; 99202; 99212